=== PATIENT | female | born 1950 | race African-American/Black ===

== ENCOUNTER → 2016-06-18 | Outpatient (CLI) | payer MEDICARE, OTHER ==
[2014-12-28 17:15] VITALS: BP 161/87
[~2016-06-18] MED LIST: AMLO5TAB4 PO; ASPI325T4 PO; CHOL500016 PO; LORA10TA68 PO; LOSA1TAB17 PO; MULT-658 PO; RANI300C PO
--- NOTE | 2016-06-18 08:00 | RAD ---
Abdominal ultrasound, 06/18/2016: History: Abdominal pain The gallbladder is contracted and not optimally delineated. No gallstones are seen. Mild thickening of its winter is likely related to its nondistended state. The common hepatic duct is at the upper limits of normal in size measuring 6 mm. No intrahepatic bile duct dilatation is seen. The hepatic echogenicity is increased suggesting fatty change. The visualized portions of the pancreas, spleen and both kidneys are unremarkable. The abdominal aorta is of normal caliber. Inferior vena cava is unremarkable. No free fluid is evident in the abdomen. IMPRESSION: 1. Poorly distended gallbladder with no obvious calculi. 2. Increased hepatic echogenicity most commonly due to hepatic steatosis.
--- NOTE | 2016-06-18 13:54 | RAD ---
DATE: 06/18/2016 EXAM: DIGITAL SCREEN BILAT W/CAD HISTORY: Screening COMPARISON: None This study was interpreted with the benefit of Computerized Aided Detection (CAD). FINDINGS: The breast parenchyma shows scattered fibroglandular densities. Breast parenchyma level B. There is an area of increased density in the right breast probably reflecting fibroglandular tissue. As no old films are available coned compression imaging and targeted ultrasound are suggested for confirmation. The left breast appears unremarkable. A few scattered benign-appearing calcifications are noted in the right breast IMPRESSION: Probable glandular tissue right breast. Additional imaging, however, suggested as outlined above BI-RADS CATEGORY: 0 INCOMPLETE: NEED ADDITIONAL IMAGING EVAULATION AND/OR PRIOR MAMMOGRAMS FOR COMPARISON RECOMMENDED FOLLOW-UP: ADD ADDITIONAL IMAGING PQRS compliance statement: Patient information was entered into a reminder system with a target due date soon for the next mammogram. Mammography is a sensitive method for finding small breast cancers, but it does not detect them all and is not a substitute for careful clinical examination. A negative mammogram does not negate a clinically suspicious finding and should not result in delay in biopsying a clinically suspicious abnormality. "Our facility is accredited by the [employer] Mammography Program."
== END | disposition home or self-care (01) ==
LOC: US 07:30
PROVIDERS: ATTEND Family Medicine
DX: Z12.31 Encounter for screening mammogram for malignant neoplasm of breast (principal); R10.9 Unspecified abdominal pain; K76.0 Fatty (change of) liver, not elsewhere classified
CPT/HCPCS: 76700; G0202; 77067

== ENCOUNTER → 2017-09-06 | Outpatient (CLI) | payer MEDICARE, OTHER | END | disposition home or self-care (01) | LOC: MAMMO 12:24 | DX: Z12.31 Encounter for screening mammogram for malignant neoplasm of breast (principal); I10 Essential (primary) hypertension; K21.9 Gastro-esophageal reflux disease without esophagitis; D64.9 Anemia, unspecified | CPT/HCPCS: 77063; 77067 ==

== ENCOUNTER → 2017-09-10 | Outpatient (CLI) | payer MEDICARE, OTHER | END | disposition home or self-care (01) | LOC: US 11:07 | DX: R92.8 Other abnormal and inconclusive findings on diagnostic imaging of breast (principal); I10 Essential (primary) hypertension; K21.9 Gastro-esophageal reflux disease without esophagitis | CPT/HCPCS: 76641 ==

== ENCOUNTER → 2017-10-07 | Outpatient (CLI) | payer MEDICARE, OTHER ==
[2014-12-28 17:15] VITALS: BP 161/87
[~2017-10-07] MED LIST changes: -ASPI325T4 PO; +ASPI325T8 PO; +DOCU50CA9 PO; +LIDOCAINE 1% Multi-Dose 50 ML VIAL. INJ ONE; +LIDOCAINE 2%/EPI 1:100,000 20 ML VIAL. IJ ONE; -LOSA1TAB17 PO; +LOSA1TAB22 PO; +OXYC-323 PO; +ZOLP10TA PO
--- NOTE | 2017-10-11 10:09 | PATHOLOGY ---
[facility] Accession Number: [id number] . 01 Material submitted: . RIGHT BREAST . 01 Clinical history: . Right breast mass . 02 Diagnosis: Breast tissue, right breast mass at 10:00 needle biopsies: - Fibroepithelial lesion with stromal hypercellularity and marked stromal atypia. See comment. P/10/10/2017 . 02 Comment: Sections of the right breast mass at 10:00 needle biopsies reveal a fibroepithelial lesion. The epithelial component shows usual ductal epithelial hyperplasia. The stromal component shows hypercellularity and marked stromal atypia which is composed of stromal cells which possess enlarged irregular hyperchromatic nuclei. There are scattered mitotic figures. The stromal component focally appears to infiltrate fat. An immunoperoxidase stain for AE1/AE3 is obtained on block A1 and yields the following results: . AE1/AE3: Epithelial component positive; stromal component negative . 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 Surgical excision is recommended. . The case is also examined by Dr. Berkley Salazar, who concurs with the diagnosis. . (JPM:[facility] 10/10/2017) . 02 Electronically signed: . Alfred Correia MD, Pathologist NPI- [id number] . 01 Gross description: . Received in formalin labeled "Michelle Lemus, right breast," and additionally labeled on the requisition as "10:00, 6 cm FN," are multiple needle cores of yellow-fagan fibrofatty tissue measuring 3.0 x 1.8 x 0.3 cm in aggregate dimensions. The tissue submitted in its entirety in cassette A1 through A3. The cold ischemic time is 5 minutes. The total formalin fixation time is 12 hours and 35 minutes. ([facility]; 10/07/2017) TOB/TOB . 02 Pathologist provided ICD-10: N64.89, N63.10 . 02 CPT . 442810, [id number] Performed at: 01 [place] [id number] [address] [id number] MD Celso Rouse MD Phone: [phone] Performed at: [address] [id number] MD Alfred Correia MD Phone: [phone]
--- NOTE | 2017-10-21 11:49 | RAD ---
Ultrasound-guided vacuum-assisted right breast biopsy, 10/07/2017: History: Suspicious nodule Previous studies demonstrated a suspicious nodule at the 10:00 location. Under local anesthesia, aseptic conditions and sonographic guidance the [employer] biopsy instrument was passed into this nodule via a lateral approach. Multiple 12-gauge vacuum-assisted core samples were obtained. A biopsy marker was then deposited at the biopsy site. The biopsy instrument was removed and hemostasis obtained. Two-view postprocedural digital mammograms were then obtained to document position of the biopsy marker. It lies along the anterior margin of the biopsy site. The patient tolerated the procedure well and left the department in good condition. Note: The subsequent pathology report indicated the presence of a fibroepithelial lesion with marked stromal atypia, suspicious for a malignant phyllodes tumor. Surgical excision was recommended.
== END | disposition home or self-care (01) ==
LOC: US 08:40
PROVIDERS: ATTEND Surgery
DX: N63.10 Unspecified lump in the right breast, unspecified quadrant (principal)
CPT/HCPCS: 19083; 77065; 88305; 88342; C1713; 19081; 76942

== ENCOUNTER 2017-10-25 09:05 | Day surgery (SDC) | payer MEDICARE, OTHER ==
[~2017-10-25] VITALS: Ht 167.6 cm; Wt 78.5 kg
[~2017-10-25 09:05] MED LIST changes: +BUPIVACAINE-EPI 0.5%-1:200000 50 ML VIAL. ONE; -DOCU50CA9 PO; +HYDROmorphone 2 MG/ML VIAL IV PRN; +IV RINGERS,LACTATED 1000ML 1,000 ML IV SCH; -LIDOCAINE 1% Multi-Dose 50 ML VIAL. INJ ONE; +LIDOCAINE 1% PF 2 ML VIAL. ID PRN; -LIDOCAINE 2%/EPI 1:100,000 20 ML VIAL. IJ ONE; +LIDOCAINE WITH 8.4% SOD BICARB 3 ML DISP.SYRIN. INJ ONE; +MORPHINE SULFATE 2 MG/ML VIAL. IV PRN; +ONDANSETRON PF 4 MG/2 ML VIAL. IV PRN; -OXYC-323 PO; +PROCHLORPERAZINE 10 MG/2 ML VIAL. IV PRN; +ceFAZolin 2GM PREMIX 2 GM/50 ML BAG IV ONE; +fentaNYL PF VIAL 100 MCG/2 ML VIAL IV PRN
[2017-10-25] MEDS ORDERED: PROPOFOL 20 ML IV ONE (09:54)
[2017-10-25] MEDS ORDERED: SUCCINYLCHOLINE 200 MG/10 ML VIAL. ONE (09:54)
[2017-10-25] MEDS ORDERED: fentaNYL PF VIAL 100 MCG/2 ML VIAL ONE (09:54)
[2017-10-25] MEDS ORDERED: ONDANSETRON PF 4 MG/2 ML VIAL. ONE (09:55)
[2017-10-25] MEDS ORDERED: DEXAMETHASONE SOD PHOS 20 MG/5 ML VIAL. ONE (09:55)
[2017-10-25] MEDS ORDERED: LIDOCAINE 2% PF Vial for OR 5 ML VIAL. ONE (09:55)
[2017-10-25] MEDS ORDERED: MIDAZOLAM HCL/PF 2 MG/2 ML VIAL. ONE (11:05)
--- NOTE | 2017-10-25 11:05 | RAD ---
Right breast needle localization, 10/25/2017: History: Breast neoplasm We targeted the biopsy clip in the upper outer quadrant of the right breast. Under local anesthesia, aseptic conditions and mammographic guidance a Kopan's needle with modified retention wire was placed adjacent to the biopsy clip. The needle was removed and the final images show that the clip lies directly inferior and anterior to the thickened portion of the retention wire, approximately 5.2 cm deep to the skin surface. The patient tolerated the procedure well and was sent to surgery in good condition.
[2017-10-25] MEDS ORDERED: SEVOFLURANE 61 TO 120 MINUTES. IH ONE (11:44)
--- NOTE | 2017-10-25 12:01 | RAD ---
Right specimen mammogram, 10/25/2017: History: Breast neoplasm A single digital mammogram of the surgical specimen from the right breast demonstrates the targeted breast biopsy marker within the specimen adjacent to the thickened portion of the retention wire at the I/5-6 level in the specimen container. The biopsied nodule lies directly adjacent to the biopsy marker at the I/6 level in the specimen container.
[2017-10-25] MEDS ORDERED: oxyCODONE/APAP 5/325 1 TAB TABLET PO ONE (13:15)
[2017-10-25 13:28] VITALS: BP 136/71
[2017-10-25] MEDS ORDERED: OXYC-323 PO (13:31)
[2017-10-25] MEDS ORDERED: DOCU50CA9 PO (13:32)
--- NOTE | 2017-10-25 13:55 | PDOC ---
BRIEF OPERATIVE NOTE Date: Oct 25, 2017 Pre-Op Diagnosis phylloides changes, right breast Post-Op Diagnosis same Procedure Performed excision Surgeon Mychal Anesthesia Type: General Blood Loss 10cc IV Fluid 700cc Specimens Obtained localized breast tissue medial to first specimen Findings fibrous tissue medial to original specimen which contained the marker Complications RAYMOND Lora MD Oct 25, 2017 13:55
--- NOTE | 2017-10-30 13:15 | OP ---
DATE OF SURGERY: 10/25/2017 PREOPERATIVE DIAGNOSIS: Phyllodes changes, right breast. POSTOPERATIVE DIAGNOSIS: Phyllodes changes, right breast. PROCEDURE: Excision. SURGEON: Raymond Bailey MD ANESTHESIA: General LMA. ESTIMATED BLOOD LOSS: 10. INTRAVENOUS FLUIDS: 700. INDICATIONS: The patient is a 67-year-old who had a needle biopsy and some changes in her right breast, which showed some concern of possible phyllodes changes. As such, she is brought for excision. OPERATIVE REPORT: The patient went to the breast center and underwent needle localization of the previously biopsied area. She was brought to the operating suite where she was given a general LMA and the right breast was prepped and draped in usual sterile fashion. An elliptical incision was infiltrated with local anesthetic, incised and a guidewire delivered into the wound. It was then traced down to the portion of the wire corresponding to the area of concern and this was sharply excised. Specimen sent to Radiology where specimen radiograph confirmed the presence of the marker in the specimen. Hemostasis obtained with cautery and 3-0 Vicryl stick tie. When hemostasis was present and a correct sponge count obtained, the breast tissue was approximated with 3-0 Vicryl. The skin was closed with a subcuticular 4-0 Monocryl. Steri-Strips and sterile dressing applied. The patient awakened from her anesthetic and taken to the recovery room in satisfactory condition. RAYMOND BAILEY MD DR: DIOGO/ketan JOB#: [id number] / [id number]
--- NOTE | 2017-10-30 16:08 | PATHOLOGY ---
[facility] Accession Number: [id number] . 01 Material submitted: . PART A: RIGHT BREAST MASS PART B: MEDIAL TO #1 . 01 Clinical history: . Tumor of breast. . 02 Diagnosis: A. Segment of breast tissue, wire localized right breast mass excision: - Residual fibroepithelial lesion with stromal hypercellularity and marked stromal atypia, measuring approximately 1.0 cm in greatest dimension. See comment. - Fibroepithelial lesion is approximately 0.3 cm from the closest inked margin. - Previous biopsy site changes. - Fibrocystic changes with focal mild to moderate ductal epithelial hyperplasia. - Fibroadenomatous change, focal. . B. Segment of breast tissue, medial to #1: - Fibrocystic changes with focal mild to moderate ductal epithelial hyperplasia. - Fibroadenomatous change, focal. (JPM:luis;db; 10/28/2017) QMS/10/30/2017 . 02 Comment: Sections of the wire localized right breast mass excision show a residual fibroepithelial lesion and previous biopsy site changes. Once again, the stromal component shows hypercellularity and marked stromal atypia with scattered mitotic figures. The lesion appears excised and is approximately 0.3 cm from the closest inked margin. Because of the unusual nature of the lesion, the case is being referred to [facility] for consultation, the results of which will be reported separately. The case is also examined by Dr. Salazar, who concurs with the diagnoses. (JPM/db; 10/30/17) . 02 Electronically signed: . Alfred Correia MD, Pathologist NPI- [id number] . 01 Gross description: . A. Received in formalin labeled "Michelle Lemus, right breast mass with suture localization" is an unoriented breast lumpectomy specimen which weighs 27 g and measures 8.0 x 4.5 x 1.4 cm. A guidewire is present within the specimen. The external surface is inked entirely black. The specimen is serially sectioned into 19 slices to reveal a dorsey-white firm mass which measures 1.6 x 1.0 x 0.7 cm. The mass is located within slices 7-10, and contains a mini cork biopsy clip in slice 7. The mass is located 0.2 cm from the closest inked margin. The uninvolved tissue is yellow-dorsey and lobulated with 10% dense white fibrous tissue. [employer] sections are submitted as follows: A1-A2 slice 6 A3-A4 slice 7 A5-A6 slice 8 A7-A8 slice 9 A9-A10 slice 10 A11 slice 11 The specimen is removed from the patient at 1145 and placed in formalin at 1210 on October 25 2017. The specimen is removed from formalin at 1650 on October 27, 2017. . B. Received in formalin labeled "Michelle Lemus, medial to #1" is an unoriented portion of yellow-dorsey lobulated fibroadipose tissue measuring 3.5 x 2.7 x 1.0 cm. One aspect is inked blue and the opposite aspect is inked black. The specimen is serially sectioned to reveal the cut surface is comprised of approximately 60% dense white fibrous tissue. No masses are present. The specimen is submitted entirely in cassettes B1-B5. ([facility]; 10/27/2017) SYC/SYC . 02 Pathologist provided ICD-10: N60.11, N62, N64.89 . 02 CPT . 455350, 549820 Performed at: 01 [facility] [address] [facility] [address], [place] [id number] MD Celso Rouse MD Phone: [phone] Performed at: 02 [facility] [address] [place], [place] [id number] MD Alfred Correia MD Phone: [phone]
== END 2017-10-25 14:18 | disposition home or self-care (01) ==
LOC: SURG 09:05
PROVIDERS: ATTEND Surgery
DX: N60.31 Fibrosclerosis of right breast (principal); I10 Essential (primary) hypertension; G47.33 Obstructive sleep apnea (adult) (pediatric); M19.90 Unspecified osteoarthritis, unspecified site; E55.9 Vitamin D deficiency, unspecified; G25.81 Restless legs syndrome; K21.9 Gastro-esophageal reflux disease without esophagitis; Z98.890 Other specified postprocedural states; Z90.710 Acquired absence of both cervix and uterus; Z80.0 Family history of malignant neoplasm of digestive organs; Z82.3 Family history of stroke; Z88.8 Allergy status to other drugs, medicaments and biological substances; Z79.82 Long term (current) use of aspirin; Z79.899 Other long term (current) drug therapy
CPT/HCPCS: 19125; 19281; 76098; J0330; J0690; J1100; J2001; J2405; J2704; J3010; J7120; 88305; 88307; A7015

== ENCOUNTER → 2018-04-28 | Outpatient (CLI) | payer MEDICARE, OTHER ==
[~2018-04-28] MED LIST changes: -BUPIVACAINE-EPI 0.5%-1:200000 50 ML VIAL. ONE; +DOCU50CA9 PO; -HYDROmorphone 2 MG/ML VIAL IV PRN; -IV RINGERS,LACTATED 1000ML 1,000 ML IV SCH; -LIDOCAINE 1% PF 2 ML VIAL. ID PRN; -LIDOCAINE WITH 8.4% SOD BICARB 3 ML DISP.SYRIN. INJ ONE; -MORPHINE SULFATE 2 MG/ML VIAL. IV PRN; -ONDANSETRON PF 4 MG/2 ML VIAL. IV PRN; +OXYC1TAB15 PO; -PROCHLORPERAZINE 10 MG/2 ML VIAL. IV PRN; -ceFAZolin 2GM PREMIX 2 GM/50 ML BAG IV ONE; -fentaNYL PF VIAL 100 MCG/2 ML VIAL IV PRN
--- NOTE | 2018-04-28 14:00 | RAD ---
DATE: April 28, 2018 EXAM: DIGITAL DIAGNOSTIC RT History: History of excisional biopsy on the right side. The patient stated it was benign. COMPARISON: September 06, 2017. 2-D digital mammographic views of the right breast were performed in the CC and MLO projections. This study was interpreted with the benefit of Computerized Aided Detection (CAD). FINDINGS: Breast Density: SCATTERED The breast parenchyma shows scattered fibroglandular densities. Breast parenchyma level B.. Postoperative changes of the right breast are now evident. No other new abnormality is seen. No clustering of pleomorphic microcalcifications are evident. IMPRESSION: Post biopsy changes of the right breast. Recommend bilateral mammography in 6 months to get back onto the yearly screening schedule. BI-RADS CATEGORY: 2 BENIGN FINDING RECOMMENDED FOLLOW-UP: 6M 6 MONTH FOLLOW-UP PQRS compliance statement: Patient information was entered into a reminder system with a target due date October 26, 2018 for the next mammogram. Mammography is a sensitive method for finding small breast cancers, but it does not detect them all and is not a substitute for careful clinical examination. A negative mammogram does not negate a clinically suspicious finding and should not result in delay in biopsying a clinically suspicious abnormality. "Our facility is accredited by the [employer] Mammography Program." The patient's breast density may affect the ability of mammography to detect breast cancer. There are 4 categories of breast density, A, B, C and D. Breast density A means that most of the breast tissue is replaced with adipose tissue and therefore is not dense. Breast density B means that the breast tissue is mildly dense and scattered. Breast density C means that the breast tissue is heterogeneously dense. Breast density D means that the breast tissue is very dense. Breast densities especially C and D may decrease the sensitivity of mammography to detect breast cancer. Therefore, the patient may benefit from 3-D breast mammography (3D breast tomography) as a part of their screening mammogram. Insurance may or may not pay for this additional imaging. The patient's breast density based on today's mammogram is category B.
== END | disposition home or self-care (01) ==
LOC: MAMMO 13:19
PROVIDERS: ATTEND Surgery
DX: R92.8 Other abnormal and inconclusive findings on diagnostic imaging of breast (principal); Z98.890 Other specified postprocedural states
CPT/HCPCS: 77065

== ENCOUNTER → 2019-03-17 | Outpatient (CLI) | payer MEDICARE, OTHER ==
--- NOTE | 2019-03-18 14:48 | RAD ---
History: Routine screening. Technique: Bilateral digital mammographic routine views were obtained with CAD - computer aided detection. Comparison: 06/18/2016, 09/06/2017. Findings: Breast Tissue Density B :The breast tissue is composed of mixed fatty and fibroglandular tissue. There are no suspicious masses, microcalcifications or unexplained areas of architectural distortion. Benign postlumpectomy changes with architectural variation in the central right breast are noted. Impression: Benign findings on bilateral mammographic screening. No evidence of malignancy. BI-RADS Category 2: Benign. . Normal interval followup. A mammogram does not have 100% sensitivity and therefore a negative imaging study should not delay further work up of a suspicious abnormality. The patient will receive a letter with the results in the mail. Patient information is entered into the reminder system with a target due date for the next screening mammogram. The patient will receive a reminder. "Our facility is accredited by the [employer] Mammography Program." BI-RADS 2 -- benign findings
== END | disposition home or self-care (01) ==
LOC: MAMMO 12:49
PROVIDERS: ATTEND Family Medicine
DX: Z12.31 Encounter for screening mammogram for malignant neoplasm of breast (principal); N60.11 Diffuse cystic mastopathy of right breast
CPT/HCPCS: 77063; 77067

== ENCOUNTER → 2020-01-12 | Outpatient (CLI) | payer MEDICARE, OTHER ==
[~2020-01-12] MED LIST changes: +LOSA100T14 PO; +NIAC500C6 PO; +TURM500C4 PO
== END ==
LOC: LAB 13:59
PROVIDERS: ATTEND Internal Medicine Gastroenterology
DX: Z01.812 Encounter for preprocedural laboratory examination (principal); Z20.828 Contact with and (suspected) exposure to other viral communicable diseases
CPT/HCPCS: U0003

== ENCOUNTER → 2020-01-15 | Day surgery (SDC) | payer MEDICARE, OTHER ==
[~2020-01-15] MED LIST changes: +HYDROmorphone 2 MG/ML VIAL IV PRN; +IV RINGERS,LACTATED 1000ML 1,000 ML IV SCH; +LIDOCAINE 2% PF 5 ML VIAL. ONE; +MORPHINE SULFATE 2 MG/ML VIAL. IV PRN; +ONDANSETRON PF 4 MG/2 ML VIAL. IV PRN; +PROCHLORPERAZINE 10 MG/2 ML VIAL. IV PRN; +PROPOFOL 10 MG/ML (20ML) VIAL. IV ONE; +fentaNYL PF VIAL 100 MCG/2 ML VIAL IV PRN
--- NOTE | 2020-01-15 08:53 | CONS ---
DATE OF CONSULTATION: 01/15/2020 REFERRING PHYSICIAN: Uriel Grady MD HISTORY OF PRESENT ILLNESS: This is a 69-year-old -[place] female whose past medical history is significant for Wynn's, history of partial small-bowel obstruction, sleep apnea, hiatal hernia, hypertension, is seen for interval colonoscopy. Bowel habits are regular without diarrhea and constipation. There has been no melena and/or hematochezia. No family history of colon polyps or colon cancer is encountered and she is otherwise without additional complaints. PAST MEDICAL HISTORY: Hypertension, history of Wynn's, anemia, partial small-bowel obstruction. ALLERGIES: None. MEDICATIONS: Include Norvasc, vitamin D, losartan, multivitamins, niacin. FAMILY HISTORY: Significant for esophageal cancer with her mother, [place] with father. PAST SURGICAL HISTORY: Weight loss, , colon resection and hysterectomy. REVIEW OF SYSTEMS: Per records. PHYSICAL EXAMINATION: GENERAL: Reveals a well-nourished, well-developed -[place] female who is alert, cooperative, in no acute distress. VITAL SIGNS: Temperature is 97.3, pulse 75, respirations 20. LUNGS: Clear. CARDIOVASCULAR: Reveals an S1, S2 without S3, S4 or appreciable murmur. ABDOMEN: Reveals a soft abdomen, normal bowel sounds, without appreciable hepatosplenomegaly. EXTREMITIES: Reveals no cyanosis, clubbing or edema. IMPRESSION: Colorectal screening is warranted at this time. Risks and benefits of procedure including risk of hemorrhage and perforation during the operation have been discussed with the patient and family and is willing to proceed. I would like to thank Dr. Grady for allowing us to consult and participate in the patient's care. MESFIN HAGEN MD DR: Harjit JOB#: [id number] / [id number] URIEL Wade MD
[2020-01-15 09:43] VITALS: BP 120/82
== END | disposition home or self-care (01) ==
LOC: SURG 06:53
PROVIDERS: ATTEND Internal Medicine Gastroenterology
DX: Z12.11 Encounter for screening for malignant neoplasm of colon (principal); K64.0 First degree hemorrhoids; K57.30 Diverticulosis of large intestine without perforation or abscess without bleeding; I10 Essential (primary) hypertension; G47.30 Sleep apnea, unspecified; K21.9 Gastro-esophageal reflux disease without esophagitis; M19.90 Unspecified osteoarthritis, unspecified site; Z90.710 Acquired absence of both cervix and uterus; Z98.890 Other specified postprocedural states; Z79.899 Other long term (current) drug therapy
CPT/HCPCS: G0121; J2704; 45378